=== PATIENT | male | born 1965 | race African-American/Black ===

== ENCOUNTER 2018-01-27 05:02 | Emergency (ER) | payer SELFPAY ==
[2018-01-27] MEDS ORDERED: ASPIRIN 81 MG TABLET, CHEWABLE PO ONE (05:22)
--- NOTE | 2018-01-27 05:55 | RADIOLOGY REPORT (SQ) ---
EXAM DESCRIPTION: CHEST SINGLE VIEW CLINICAL HISTORY: palpitations COMPARISON: None. FINDINGS: Single frontal view of the chest. The cardiomediastinal silhouette has normal size and contour. No consolidation, pneumothorax, or pleural effusion. Leads overlie the chest. Low lung volumes. No displaced rib fractures identified. Upper abdominal soft tissues are unremarkable. IMPRESSION: 1. No acute pulmonary process identified. Low lung volumes.
[2018-01-27 07:21] LABS: ABSOLUTE EOSINOPHILS # (AUTO) 0.1 10^3/uL (0.0-0.6); ABSOLUTE LYMPHOCYTES (AUTO) 2.4 10^3/uL (0.5-4.7); ABSOLUTE MONOCYTES (AUTO) 0.6 10^3/uL (0.1-1.4); ABSOLUTE NEUT (AUTO) 2.6 10^3/uL (1.7-8.2); BASOPHILS % (AUTO) 0.4 % (0-2); EOSINOPHILS % (AUTO) 1.7 % (0-6); HEMATOCRIT 45.1 % (37.9-51.0); HEMOGLOBIN 15.8 g/dL (13.5-17.0); LYMPHOCYTES % (AUTO) 42.3 % (13-45); MEAN CORPUSCULAR HEMOGLOBIN 33.6 pg (27.0-33.4); MEAN CORPUSCULAR VOLUME 96 fl (80-97); MONOCYTES % (AUTO) 9.9 % (3-13); PLATELET COUNT 225 10^3/uL (150-450); RED CELL DISTRIBUTION WIDTH 12.8 % (11.5-14.0); SEGMENTED NEUTROPHILS % (AUTO) 45.7 % (42-78); TOTAL CELLS COUNTED % (AUTO) 100 %; WHITE BLOOD COUNT 5.7 10^3/uL (4.0-10.5)
[2018-01-27 07:36] LABS: ALANINE AMINOTRANSFERASE 44 U/L (21-72); ALBUMIN 4.4 g/dL (3.5-5.0); ALKALINE PHOSPHATASE 71 U/L (38-126); ANION GAP 13 (5-19); ASPARTATE AMINO TRANSFERASE 44 U/L (17-59); BILIRUBIN,DIRECT 0.2 mg/dL (0.0-0.4); BILIRUBIN,TOTAL 0.3 mg/dL (0.2-1.3); BLOOD UREA NITROGEN 16 mg/dL (7-20); CALCIUM 10.2 mg/dL (8.4-10.2); CARBON DIOXIDE 30 mmol/L (22-30); CHLORIDE 101 mmol/L (98-107); CREATINE KINASE 622 U/L (55-170); GLUCOSE 126 mg/dL (75-110); POTASSIUM 4.9 mmol/L (3.6-5.0); SODIUM 143.5 mmol/L (137-145); TOTAL PROTEIN 7.8 g/dL (6.3-8.2)
[2018-01-27 07:47] LABS: CREATINE KINASE MB 2.56 ng/mL (<4.55)
[2018-01-27 07:52] LABS: TROPONIN I < 0.012 ng/mL
--- NOTE | 2018-01-27 08:10 | ER Document Report ---
ED Cardiac - General Chief Complaint: Palpitations Stated Complaint: PALPITATIONS Time Seen by Provider: 01/27/18 06:11 Notes: 53-year-old male complaining of buzzing feeling in his heart. Patient will not give history. History is given by friend at bedside who states that "I am about to be his ". The man at the bedside states that he brought him here recently to avoid family issues in [place]. The man at the bedside states that the patient is mentally handicapped. Cannot give me a diagnosis. States that he does have hypertension and diabetes. Patient will not answer questions. Underlying psychiatric history is noted but the man at the bedside does not know what kind of mental health issues he has other than he is afraid of society. TRAVEL OUTSIDE OF THE [place] IN LAST 30 DAYS: No - HPI Patient complains to provider of: Palpitations Past Medical History - General Information source: Friend - Social History Smoking Status: Never Smoker Chew tobacco use (# tins/day): No Frequency of alcohol use: None Drug Abuse: None Lives with: Friend Family History: Other - Unknown Patient has suicidal ideation: No Patient has homicidal ideation: No - Past Medical History Cardiac Medical History: Reports: Hx Hypertension Endocrine Medical History: Reports: Hx Diabetes Mellitus Type 2 Renal/ Medical History: Denies: Hx Peritoneal Dialysis Review of Systems - Review of Systems -: Yes ROS unobtainable due to patient's medical condition Constitutional: No symptoms reported EENT: No symptoms reported Cardiovascular: No symptoms reported Respiratory: No symptoms reported Gastrointestinal: No symptoms reported Genitourinary: No symptoms reported Male Genitourinary: No symptoms reported Musculoskeletal: No symptoms reported Skin: No symptoms reported Hematologic/Lymphatic: No symptoms reported Neurological/Psychological: No symptoms reported Physical Exam - Vital signs Vitals: Temp Pulse Resp BP Pulse Ox 97.9 F 110 H 18 125/71 96 01/27/18 05:07 01/27/18 05:07 01/27/18 05:07 01/27/18 05:07 01/27/18 05:07 Interpretation: Tachycardic - General General appearance: Appears well, Alert - HEENT Head: Normocephalic, Atraumatic Eyes: Normal Pupils: PERRL - Respiratory Respiratory status: No respiratory distress Chest status: Nontender Breath sounds: Normal Chest palpation: Normal - Cardiovascular Rhythm: Tachycardia Heart sounds: Normal auscultation Murmur: No - Abdominal Inspection: Normal Distension: No distension Bowel sounds: Normal Tenderness: Nontender Organomegaly: No organomegaly - Back Back: Normal, Nontender - Extremities General upper extremity: Normal inspection, Nontender, Normal color, Normal ROM , Normal temperature General lower extremity: Normal inspection, Nontender, Normal color, Normal ROM , Normal temperature, Normal weight bearing. No: Gigi's sign - Neurological Neuro grossly intact: Yes Kinde Coma Scale Eye Opening: Spontaneous Kinde Coma Scale Motor: Obeys Commands Motor strength normal: LUE, RUE, LLE, RLE Sensory: Normal - Skin Skin Temperature: Warm Skin Moisture: Dry Skin Color: Normal Course - Re-evaluation Re-evalutation: 01/27/18 09:49 At this time all of patient's labs are unremarkable. Not having any tachycardia. Unremarkable EKG. Uncertain what is going on. With his underlying mental health issues it is very hard to get a clear picture. However at this time I do not find there is anything that warrants admission. Denies any chest pain. No obvious pathology seen. Will give follow-up information for primary care doctor as well as taxonomy teacher and discharge at this time. 01/27/18 09:51 Laboratory 01/27/18 01/27/18 01/27/18 07:00 07:00 07:00 WBC 5.7 RBC 4.70 Hgb 15.8 Hct 45.1 MCV 96 MCH 33.6 H MCHC 35.0 RDW 12.8 Plt Count 225 Seg Neutrophils % 45.7 Lymphocytes % 42.3 Monocytes % 9.9 Eosinophils % 1.7 Basophils % 0.4 Absolute Neutrophils 2.6 Absolute Lymphocytes 2.4 Absolute Monocytes 0.6 Absolute Eosinophils 0.1 Absolute Basophils 0.0 Sodium 143.5 Potassium 4.9 Chloride 101 Carbon Dioxide 30 Anion Gap 13 BUN 16 Creatinine 1.25 Est GFR ( Amer) > 60 Est GFR (Non-Af Amer) > 60 Glucose 126 H Calcium 10.2 Total Bilirubin 0.3 Direct Bilirubin 0.2 Neonat Total Bilirubin Not Reportable Neonat Direct Bilirubin Not Reportable Neonat Indirect Bili Not Reportable AST 44 ALT 44 Alkaline Phosphatase 71 Creatine Kinase 622 H CK-MB (CK-2) 2.56 Troponin I < 0.012 Total Protein 7.8 Albumin 4.4 Urine Color Urine Appearance Urine pH Ur Specific Catlett Urine Protein Urine Glucose (UA) Urine Ketones Urine Blood Urine Nitrite Urine Bilirubin Urine Urobilinogen Ur Leukocyte Esterase Urine WBC (Auto) Urine RBC (Auto) Urine Mucus (Auto) Urine Ascorbic Acid Urine Opiates Screen Urine Methadone Screen Ur Barbiturates Screen Ur Phencyclidine Scrn Ur Amphetamines Screen U Benzodiazepines Scrn Urine Cocaine Screen U Marijuana (THC) Screen 01/27/18 01/27/18 08:54 08:54 WBC RBC Hgb Hct MCV MCH MCHC RDW Plt Count Seg Neutrophils % Lymphocytes % Monocytes % Eosinophils % Basophils % Absolute Neutrophils Absolute Lymphocytes Absolute Monocytes Absolute Eosinophils Absolute Basophils Sodium Potassium Chloride Carbon Dioxide Anion Gap BUN Creatinine Est GFR ( Amer) Est GFR (Non-Af Amer) Glucose Calcium Total Bilirubin Direct Bilirubin Neonat Total Bilirubin Neonat Direct Bilirubin Neonat Indirect Bili AST ALT Alkaline Phosphatase Creatine Kinase CK-MB (CK-2) Troponin I Total Protein Albumin Urine Color YELLOW Urine Appearance CLEAR Urine pH 5.0 Ur Specific Catlett 1.026 Urine Protein NEGATIVE Urine Glucose (UA) NEGATIVE Urine Ketones NEGATIVE Urine Blood NEGATIVE Urine Nitrite NEGATIVE Urine Bilirubin NEGATIVE Urine Urobilinogen NEGATIVE Ur Leukocyte Esterase NEGATIVE Urine WBC (Auto) 1 Urine RBC (Auto) 1 Urine Mucus (Auto) RARE Urine Ascorbic Acid 40 H Urine Opiates Screen NEGATIVE Urine Methadone Screen NEGATIVE Ur Barbiturates Screen NEGATIVE Ur Phencyclidine Scrn NEGATIVE Ur Amphetamines Screen NEGATIVE U Benzodiazepines Scrn NEGATIVE Urine Cocaine Screen NEGATIVE U Marijuana (THC) Screen NEGATIVE Chest X-Ray 01/27/18 05:22 IMPRESSION: 1. No acute pulmonary process identified. Low lung volumes. - Vital Signs Vital signs: Temp Pulse Resp BP Pulse Ox 97.9 F 110 H 18 125/71 95 01/27/18 05:07 01/27/18 05:07 01/27/18 05:07 01/27/18 05:07 01/27/18 05:22 - Laboratory Result Diagrams: 01/27/18 07:00 01/27/18 07:00 Laboratory results interpreted by me: 01/27/18 01/27/18 01/27/18 07:00 07:00 08:54 MCH 33.6 H Glucose 126 H Creatine Kinase 622 H Urine Ascorbic Acid 40 H - EKG Interpretation by Me EKG shows normal: Sinus rhythm, Adger, Intervals, QRS Complexes, ST-T Waves Discharge - Discharge Clinical Impression: Intermittent palpitations Condition: Good Disposition: HOME, SELF-CARE Instructions: Palpitations (Irregular or Rapid Heartrate) ([facility]) Additional Instructions: Please make an appointment with a taxonomy teacher as well as a primary care doctor. 2 referrals have been provided below. In the event that symptoms get worse, chest pain, shortness of breath or any other concerning symptoms please return immediately. Referrals: CARMELO GREEN MD [ACTIVE STAFF] - Follow up in 1 week MAURO MOSER DO [NO LOCAL MD] - Follow up in 3-5 days
[2018-01-27] MEDS ORDERED: NORMAL SALINE 1000 ML 1,000 ML IV ONE (08:18)
[2018-01-27 09:04] LABS: APPEARANCE,URINE CLEAR; BILIRUBIN,URINE NEGATIVE (NEGATIVE); COLOR,URINE YELLOW; GLUCOSE, URINE NEGATIVE (NEGATIVE); KETONES,URINE NEGATIVE (NEGATIVE); LEUKOCYTE ESTERASE,URINE NEGATIVE (NEGATIVE); NITRITE,URINE NEGATIVE (NEGATIVE); PROTEIN,URINE NEGATIVE (NEGATIVE); URINE SPECIFIC GRAVITY 1.026; UROBILINOGEN,URINE NEGATIVE mg/dL (<2.0)
[2018-01-27 09:29] LABS: URINE AMPHETAMINES SCREEN NEGATIVE; URINE BARBITURATES SCREEN NEGATIVE; URINE BENZODIAZEPINES SCREEN NEGATIVE; URINE COCAINE SCREEN NEGATIVE; URINE MARIJUANA (THC) SCREEN NEGATIVE; URINE METHADONE SCREEN NEGATIVE; URINE PHENCYCLIDINE SCREEN NEGATIVE
[2018-01-27 10:14] VITALS: BP 132/95
--- NOTE | 2018-01-27 20:22 | EKG REPORT ---
SEVERITY:- BORDERLINE ECG - SINUS TACHYCARDIA BORDERLINE T WAVE ABNORMALITIES : Confirmed by: Angel Chua 27-Jan-2018 20:22:24
== END 2018-01-27 10:08 | disposition home or self-care (01) ==
LOC: ER 05:02
DX: R00.2 Palpitations (principal); I10 Essential (primary) hypertension; E11.9 Type 2 diabetes mellitus without complications
CPT/HCPCS: 36415; 71045; 80053; 80307; 81001; 82550; 82553; 84484; 85025; 93005; 93010; 99285